=== PATIENT | female | born 1995 | race Hispanic/Latino ===

== ENCOUNTER → 2024-08-12 | Outpatient (CLI) | payer MEDICAID ==
[2024-08-12 13:06] LABS: BASOPHILS # (AUTO) 0.06 K/uL (0.00-0.20); BASOPHILS % (AUTO) 0.5 % (0.0-5.0); EOSINOPHILS # (AUTO) 0.36 K/uL (0.00-0.70); HEMATOCRIT 36.2 % (36-48); IMMATURE GRANULOCYTE ABSOLUTE 0.03 K/uL (0-1); LYMPHOCYTES # (AUTO) 3.3 K/uL (1.0-4.8); LYMPHOCYTES % (AUTO) 27.3 % (21.0-51.0); MEAN CORPUSCULAR HEMOGLOBIN 28.8 pg (27.0-33.0); MEAN CORPUSCULAR VOLUME 89.8 fL (79-99); MONOCYTES # (AUTO) 1.2 K/uL (0.1-1.0); MONOCYTES % (AUTO) 9.9 % (3.0-13.0); NEUTROPHILS # (AUTO) 7.2 K/uL (1.8-7.7); NEUTROPHILS % (AUTO) 59.1 % (40.0-77.0); PLATELET COUNT (AUTO) 385 K/uL (130-400); RED BLOOD CELL COUNT(AUTO) 4.03 MIL/uL (4.00-5.50); RED CELL DISTRIBUTION WIDTH 12.6 % (11.0-15.5); WHITE BLOOD COUNT (AUTO) 12.2 K/uL (4.8-10.8)
[2024-08-12 13:18] LABS: ALBUMIN 3.5 g/dL (3.5-5.0); BILIRUBIN,TOTAL 0.3 mg/dL (0.2-1.0); CREATININE 0.8 mg/dL (0.5-1.0); POTASSIUM 3.9 mmol/L (3.5-5.1); TOTAL PROTEIN, SERUM 7.5 g/dL (6.0-8.3)
== END | disposition home or self-care (01) ==
LOC: LAB 12:18
PROVIDERS: ATTEND Internal Medicine Gastroenterology
DX: R10.30 Lower abdominal pain, unspecified (principal)
CPT/HCPCS: 36415; 80053; 85025; 86140

== ENCOUNTER → 2024-08-18 | Outpatient (CLI) | payer MEDICAID ==
[~2024-08-18] MED LIST: IOHEXOL 350 MG/ML 100ML INFUS..BTL IV ONE
--- NOTE | 2024-08-18 09:47 | HMCIMG ---
Exam Type: CT ABDOMEN/PELVIS W/WO CONTRAS Clinical Information: LOWER ABD PAIN Comparison: None Contrast: 100 cc's Isovue 370 IV, no complications or adverse reactions CT Dose Index (CTDI): 31.60 mGy Dose Length Product (DLP): 1740.80 total mGy-cm Findings: No evidence of nephro or ureterolithiasis is found. No hydronephrosis or ureteral dilatation is seen. The lung bases are clear. The stomach is unremarkable. It shows no wall thickening. No gross ulceration is seen. It is not overly distended. There are no surrounding inflammatory changes. No wall lesions are identified to suggest cancer. The spleen is unremarkable. It is not enlarged. The pancreas shows normal anatomy. It is not fatty replaced. It shows no lesions. The pancreatic duct is not dilated. The gallbladder is surgically absent. The adrenal glands are unremarkable. There is no enlargement. No lesions are noted. The liver is unremarkable. It shows no focal masses. The appendix is unremarkable. It shows no evidence of inflammation. No appendicolith is seen. The small bowel is unremarkable. There is no evidence of dilatation to suggest obstruction. No evidence of adynamic ileus is seen. There is no small bowel wall thickening to suggest enteritis. The colon is unremarkable. The urinary bladder is unremarkable. There is no wall thickening to suggest tumor or inflammation. There are no intraluminal calculi. There are no diverticula. There is no evidence of chronic bladder outlet obstruction. There is no evidence of urinary bladder distention to suggest urinary retention. The other pelvic structures are unremarkable. The bony and vascular structures are unremarkable for the patient's age. IMPRESSION: Status post cholecystectomy. No acute pathology. This study was performed using dose reduction techniques to include automated exposure control and/or adjustment of the mA and/or kV according to patient size.
== END | disposition home or self-care (01) ==
LOC: RAH 08:27 → EDUNIT# 09:00
PROVIDERS: ATTEND Internal Medicine Gastroenterology
DX: R10.30 Lower abdominal pain, unspecified (principal); Z90.49 Acquired absence of other specified parts of digestive tract
CPT/HCPCS: 74178; Q9967

== ENCOUNTER 2025-01-26 02:58 | Emergency (ER) | payer MEDICAID ==
[~2025-01-26] VITALS: Ht 160 cm; Wt 95.3 kg
[2025-01-26 03:42] LABS: IMMATURE GRANULOCYTE ABSOLUTE 0.05 K/uL (0-1); NUCLEATED RED BLOOD CELLS 0.0 % (0.0-0.19); PLATELET COUNT (AUTO) 367 K/uL (130-400); RED BLOOD CELL COUNT(AUTO) 3.79 MIL/uL (4.00-5.50); RED CELL DISTRIBUTION WIDTH 13.7 % (11.0-15.5); WHITE BLOOD COUNT (AUTO) 14.8 K/uL (4.8-10.8)
[2025-01-26 03:52] LABS: CREATININE 0.8 mg/dL (0.5-1.0); GLOMERULAR FILTR. RATE CALC 103 mL/min (>90); GLUCOSE,RANDOM 98 mg/dL (70-105); SODIUM SERUM 142 mmol/L (136-145); UREA NITROGEN, BLOOD 21 mg/dL (7-18)
[2025-01-26 03:56] LABS: ASPARTATE AMINOTRANSFERASE 18 U/L (10-37); TOTAL PROTEIN, SERUM 7.0 g/dL (6.0-8.3)
[2025-01-26 04:06] LABS: BAND NEUTROPHILS % (MANUAL) 1 % (0-2); LYMPHOCYTES % (MANUAL) 36 % (22-44); MAN.DIFF COMMENT-IMPRESSION MANUAL DIFFERENTIAL; MONOCYTES % (MANUAL) 9 % (2-9); SEGMENTED NEUTROPHILS % 54 % (40-70)
[2025-01-26 04:16] VITALS: PULSE 74; RESP 18
[2025-01-26 04:41] LABS: APPEARANCE,URINE CLOUDY (CLEAR); GLUCOSE, URINE (UA) NEGATIVE (NEGATIVE); LEUKOCYTE ESTERASE ,URINE 500 Leu/uL (NEGATIVE); NITRATE,URINE NEGATIVE (NEGATIVE); OCCULT BLOOD,URINE NEGATIVE (NEGATIVE)
[2025-01-26 04:42] LABS: ADD UA MICROSCOPIC YES
--- NOTE | 2025-01-26 04:42 | ERN ---
General Chief Complaint: Shortness of Breath Stated Complaint: C/O SOB W/PRESSURE TO CHEST Time Seen by MD: 03:04 History of Present Illness Initial Comments 21-year-old female history of, Crohn's disease, OCD here for evaluation of shortness a breath and chest pressure. Patient states that she has been having symptoms since yesterday. She decided to come to emergency room for evaluation. Patient has multiple have care physician's secondary to her previous diagnosis of child. She has follow up by multiple specialties. 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 She believes her ejection fraction was in the 50s. Allergies: Coded Allergies: No Known Allergies (Unverified Allergy, Unknown, 01/26/25) Past Medical History Past Medical History: Other Medical History Other: HX OF LEUKEMIA; CROHN'S DISEASE Past Surgical History: Unknown Results Laboratory and Microbiology Lab and Micro Result Laboratory Tests Test 01/26/25 03:23 01/26/25 04:24 01/26/25 04:27 White Blood Count 14.8 K/uL (4.8-10.8) H Red Blood Count 3.79 MIL/uL (4.00-5.50) L Hemoglobin 10.6 g/dL (12.0-16.0) L Hematocrit 33.7 % (36-48) L Mean Corpuscular Volume 88.9 fL (79-99) Mean Corpuscular Hemoglobin 28.0 pg (27.0-33.0) Mean Corpuscular Hemoglobin Concent 31.5 g/dL (32.0-36.0) L Red Cell Distribution Width 13.7 % (11.0-15.5) Platelet Count 367 K/uL (130-400) Mean Platelet Volume 10.1 fL (7.5-10.5) Immature Granulocyte % (Auto) 0.3 % (0-1) Neutrophils (%) (Auto) 53.5 % (40.0-77.0) Lymphocytes (%) (Auto) 34.8 % (21.0-51.0) Monocytes (%) (Auto) 9.1 % (3.0-13.0) Eosinophils (%) (Auto) 1.8 % (0.0-8.0) Basophils (%) (Auto) 0.5 % (0.0-5.0) Neutrophils # (Auto) 7.9 K/uL (1.8-7.7) H Lymphocytes # (Auto) 5.2 K/uL (1.0-4.8) H Monocytes # (Auto) 1.4 K/uL (0.1-1.0) H Eosinophils # (Auto) 0.27 K/uL (0.00-0.70) Basophils # (Auto) 0.08 K/uL (0.00-0.20) Absolute Immature Granulocyte (auto 0.05 K/uL (0-1) Segmented Neutrophils % 54 % (40-70) Band Neutrophils % 1 % (0-2) Lymphocytes % (Manual) 36 % (22-44) Monocytes % (Manual) 9 % (2-9) Nucleated Red Blood Cells 0.0 % (0.0-0.19) Differential Comment MANUAL DIFFERENTIAL White Cell Morphology Comment Platelet Morphology Comment See comments Red Blood Cell Morphology See comments Sodium Level 142 mmol/L (136-145) Potassium Level 3.6 mmol/L (3.5-5.1) Chloride Level 105 mmol/L (101-111) Carbon Dioxide Level 28 mmol/L (21-32) Blood Urea Nitrogen 21 mg/dL (7-18) H Creatinine 0.8 mg/dL (0.5-1.0) Glomerular Filtration Rate Calc 103 mL/min (>90) Random Glucose 98 mg/dL (70-105) Total Calcium 8.8 mg/dL (8.5-10.1) Total Bilirubin 0.2 mg/dL (0.2-1.0) Direct Bilirubin < 0.1 mg/dL (0.0-0.3) Aspartate Amino Transf (AST/SGOT) 18 U/L (10-37) Alanine Aminotransferase (ALT/SGPT) 33 U/L (12-78) Alkaline Phosphatase 159 U/L (50-136) H Troponin I High Sensitivity 4 ng/L (4-50) Total Protein 7.0 g/dL (6.0-8.3) Albumin 3.4 g/dL (3.5-5.0) L Serum Test, Qualitative NEGATIVE (NEGATIVE) Influenza Type A Antigen Negative For Type A Influenza Type B Antigen Negative For Type B SARS-CoV-2 Antigen (Rapid) PRESUMPTIVE NEGATIVE Urine Color YELLOW (YELLOW) Urine Appearance CLOUDY (CLEAR) H Urine pH 5.5 (5.0-8.0) Urine Specific [place] 1.035 (1.001-1.031) Urine Protein 10 mg/dL (NEGATIVE) H Urine Glucose (UA) NEGATIVE mg/dL (NEGATIVE) Urine Ketones NEGATIVE mg/dL (NEGATIVE) Urine Occult Blood NEGATIVE (NEGATIVE) Urine Nitrate NEGATIVE (NEGATIVE) Urine Bilirubin NEGATIVE mg/dL (NEGATIVE) Urine Urobilinogen 0.2 mg/dL (0.2-1.0) Urine Leukocyte Esterase 500 Stevan/uL (NEGATIVE) H Urine RBC 6-10 /HPF (0-1) H Urine WBC 51-100 /HPF (0-1) H Urine Squamous Epithelial Cells FEW /HPF (0-2) Urine Bacteria RARE /HPF (None Seen) MDM 29-year-old female here for evaluation of shortness a breath. Labs and imaging consistent with UTI. Patient wishing to be admitted at this time as she has history of admissions. Shared decision making was had with mom. They would like to try outpatient antibiotics before in patient manage pain. We will respect his wishes at this time. Discharge home. Advised to follow up with the PCP in the next three days ED Course Orders Procedure Category Date Status Time Cbc With Differential LAB 01/26/25 Complete 03:07 Chest 1vw RAD 01/26/25 Resulted 03:07 Basic Metabolic Panel LAB 01/26/25 Complete 03:07 Hepatic Function Panel LAB 01/26/25 Complete 03:07 Troponin I High LAB 01/26/25 Complete Sensitivity 03:07 Testing, LAB 01/26/25 Complete Serum Hcg 03:07 12 Lead Ekg Tracing- EKG 01/26/25 Logged Technical 03:10 Ipratropium/Albuterol PHA 01/26/25 Complete Neb (Duoneb) 04:00 Manual Differential LAB 01/26/25 Complete 03:23 Influenza Type A & B, LAB 01/26/25 Complete Rapid 03:57 Covid19 (Sars Antigen LAB 01/26/25 Complete Rapid) 03:57 Urinalysis Profile LAB 01/26/25 Complete 04:01 Culture Urine RAZA 01/26/25 In Process 04:42 Current Medications Medications (Trade) Dose Ordered Sig/Candace Route PRN Reason Start Time Stop Time Status Last Admin Dose Admin Albuterol (DUOneb) 1 UDVIAL ONCE ONCE IH 01/26/25 04:00 01/26/25 05:04 DC Vital Signs Date Time Temp Pulse Resp B/P (MAP) Pulse Ox O2 Delivery O2 Flow Rate FiO2 01/26/25 04:16 74 18 01/26/25 03:35 98.8 78 18 124/66 99 Room Air* 0 21 01/26/25 03:00 97.3 77 20 132/86 100 Room Air DX & DISP Disposition: Discharge Departure Impression: Primary Impression: UTI (urinary tract infection) Additional Impression: Bronchitis Condition: Stable Scripts Cephalexin (Cephalexin) 500 Mg Capsule 1 CAP PO BID for 10 Days, #20 CAP 0 Refills Prov: CAROL CALDERON MD 01/26/25 Referrals: FRANCOIS HARPER MD (PCP) CAROL CALDERON MD Jan 26, 2025 04:42
[2025-01-26 04:44] LABS: SQUAMOUS EPITHELIAL CELL,UR FEW /HPF (0-2)
[2025-01-26 04:50] LABS: COVID19 (SARS ANTIGEN RAPID) PRESUMPTIVE NEGATIVE (NEGATIVE); INFLUENZA TYPE A Negative For Type A (NEGATIVE); INFLUENZA TYPE B Negative For Type B (NEGATIVE)
--- NOTE | 2025-01-26 05:02 | HMCIMG ---
EXAM: CR Chest, 1 view CLINICAL HISTORY: Chest pain. COMPARISON: None provided. FINDINGS: The lungs show no infiltrates or other acute findings. No pleural effusion or pneumothorax. The cardiomediastinal silhouette is within normal limits. No acute osseous abnormality. IMPRESSION: No acute cardiopulmonary process is evident. /[place]
[2025-01-26] MEDS ORDERED: CEPH500C2 PO (05:25)
[2025-01-26 05:42] VITALS: BP 125/63; PULSE 72; RESP 20; TEMP 98.5; O2SAT 100
--- NOTE | 2025-01-26 06:44 | EKG ---
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
== END 2025-01-26 05:56 | disposition home or self-care (01) ==
LOC: EDH 02:58
DX: N39.0 Urinary tract infection, site not specified (principal); J40 Bronchitis, not specified as acute or chronic; F42.9 Obsessive-compulsive disorder, unspecified; Z85.6 Personal history of leukemia; Z20.822 Contact with and (suspected) exposure to COVID-19
CPT/HCPCS: 99285; 96374; 71045; 87426; 80076; 84484; 80048; 84703; 85025; 87086; 87804 ×2; 81001; 36415; 93005; 94640; J0696